=== PATIENT | female | born 1940 | race Caucasian/White ===

== ENCOUNTER → 2019-04-07 | Outpatient (CLI) | payer SELFPAY | PROVIDERS: Family Provider Nurse Practitioner Family; Visit Provider Internal Medicine Medical Oncology | DX: Z08 Encounter for follow-up examination after completed treatment for malignant neoplasm (principal); Z85.118 Personal history of other malignant neoplasm of bronchus and lung; L98.9 Disorder of the skin and subcutaneous tissue, unspecified; Z90.2 Acquired absence of lung [part of]; D64.9 Anemia, unspecified; J44.9 Chronic obstructive pulmonary disease, unspecified; I10 Essential (primary) hypertension; K58.9 Irritable bowel syndrome, unspecified; M19.90 Unspecified osteoarthritis, unspecified site; H35.30 Unspecified macular degeneration; F41.8 Other specified anxiety disorders | CPT/HCPCS: 36415; 80053; 82607; 82728; 83540; 83550; 84443; 85025; 99213 ==

== ENCOUNTER 2019-09-22 09:41 | Outpatient (CLI) | payer MEDICARE, OTHER, SELFPAY ==
--- NOTE | 2019-09-22 09:44 | CT_ITS ---
WS: [id number] CT CHEST TECHNIQUE: Contrast enhanced CT of the chest with coronal and sagittal reformatted images. CLINICAL INFORMATION: LUNG CANCER COMPARISON: October 16, 2018, May 19, 2018, September 13, 2017, March 12, 2017. PET/CT September 21, 2017 DLP: 279.[address] scans at [facility] use at least one of these dose optimization techniques: automat ed exposure control; mA and/or kV adjustment per patient size (includes targeted exams where dose is matched to clinical indication); or iterative reconstruction. FINDINGS:Advanced chronic emphysematous change. Postoperative changes partial left lower lobe lobecto my. Stable parenchymal scarring and subsegmental atelectasis left lower lobe with volume loss. Right lung is well aerated. No suspicious parenchymal abnormalities in the right lung. No mediastinal or hilar lymphadenopathy. Vascular calcification including coronary. Normal thyroid gland. No axilla ry lymphadenopathy. Tiny left pleural effusion/pleural thickening. Stable hepatic cysts or cavernoma right hepatic lobe.Cholecystectomy. Left renal cyst measuring 2.7 c m. Tiny cyst at the dome the liver. Normal caliber thoracic aorta. Moderate aortic calcification. Small pericardial effusion. Slight retr olisthesis L1 on L2. Moderate thoracic kyphosis. CT/CT chest w con* [id number] IMPRESSION: 1. Stable postoperative changes left lower lobe lobectomy. Stable parenchymal scarring and subsegmental atelectasis in the left lower lobe. No recurrent mass or lesion. 2. Right lung is well aerated. 3. Advanced chronic emphysematous changes. 4. No mediastinal or hilar lymphadenopathy.
[2019-09-22 10:09] LABS: Basophils # 0.1 10^3/uL (0.0-0.1); Basophils % 0.8 %; Eosinophils # 0.1 10^3/uL (0.0-0.8); Eosinophils % 1.1 %; Hematocrit 36.5 % (37.0-47.0); Hemoglobin 12.1 g/dL (11.5-15.3); Lymphocytes # 1.6 10^3/uL (0.8-4.8); Lymphocytes % 25.9 %; Mean Corpuscular HGB Conc 33.2 g/dL (30.0-36.0); Mean Corpuscular Hemoglobin 31.7 pg (28.0-34.0); Mean Corpuscular Volume 95.5 fL (81-99); Mean Platelet Volume 9.9 fL (7.4-10.4); Monocytes # 0.5 10^3/uL (0.2-0.9); Monocytes % 8.6 %; Neutrophils # 3.9 10^3/uL (1.8-7.7); Neutrophils % 63.3 %; Nucleated Red Blood Cells % 0 %; Platelet Count 191 10^3/cmm (130-400); Red Blood Count 3.82 10^6/uL (4.1-5.3); Red Cell Distribution Width 12.3 % (12.1-15.1); White Blood Count 6.2 10^3/uL (4.0-10.0)
[2019-09-22 10:22] LABS: Alanine Aminotransferase 7 U/L (0-33); Albumin Level 4.5 g/dL (3.5-5.2); Alkaline Phosphatase 59 IU/L (35-105); Anion Gap 14.3 (5-19); Aspartate Amino Transferase 15 U/L (0-32); Blood Urea Nitrogen 10 mg/dL (8-23); Carbon Dioxide 30 mmol/L (22-29); Chloride 96 mmol/L (98-107); Globulin 1.7 g/dL (1.3-4.6); Glucose 100 mg/dL (65-115); Osmolality Calculated 278 mOsm/kg (285-295); Potassium 4.3 mmol/L (3.5-5.1); Sodium 136 mmol/L (136-145); Total Bilirubin 0.3 mg/dL (0.15-1.2); Total Protein 6.2 g/dL (6.6-8.7)
[2019-09-22] MEDS: iohexol 300 mg/mL 100 mL Btl IV (11:02)
== END 2019-09-22 09:42 | disposition home or self-care (01) ==
LOC: CT 09:41
PROVIDERS: Family Provider Nurse Practitioner Family; PCP Nurse Practitioner Family; Visit Provider Internal Medicine Medical Oncology
DX: C34.32 Malignant neoplasm of lower lobe, left bronchus or lung (principal); Z90.2 Acquired absence of lung [part of]; I70.0 Atherosclerosis of aorta; I31.3 Pericardial effusion (noninflammatory)
CPT/HCPCS: 36415; 71260; 80053; 85025

== ENCOUNTER 2019-09-24 13:22 | Outpatient (CLI) | payer MEDICARE, OTHER, SELFPAY ==
--- NOTE | 2019-09-24 19:59 | ONC FU_ITS ---
Dr. Loya Patient Follow-Up Note Patient: Doris Zelaya Unit #: [id number]: 1940 Dicatated By: Nahum Loya M.D.Date of Visit:Sep 24, 2019 Onc Med Follow-up/Prog Note Chief Complaint: Lung cancer. 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 This patient has severe COPD. She was noted to have a small left lower lobe pulmonary nodule on a chest CT scan in December 2016. It measured 7.3 mm. Also noted was a right apical subpleural nodule measuring 5.3 mm. It appeared stable on a followup study in March 2017. However, a repeat chest CT on 09/13/2017 the left lower lobe nodule had increased to 10.4 mm. The right apical subpleural nodule appeared stable at 5 mm. Other findings included severe emphysema and increasing pericardial effusion measuring 1.6 cm. PET/CT showed uptake in the left lower lobe nodule consistent with primary lung malignancy. There were reportedly no other areas of abnormal uptake. She was referred to Dr. Lock in [place]. On 11/22/2017 she underwent left video-assisted thorascopic surgery with left lower lobe segmentectomy which included the lateral and posterior lateral basal segments. Pathology showed moderately differentiated non-small cell carcinoma, which ultimately was determined to be a squamous cell carcinoma. It measured 1.2 cm in greatest dimension. The margins were uninvolved, with the closest margin measured 1.5 cm. The tumor was found to be negative for PD-L1 expression, 0%. She had medical oncology consultation with Dr. Justo Ford on 11/26/2017. No further treatment was recommended other than close surveillance. She appeared clinically stable on a follow-up visit with him in February 2018. I had seen her initially on 05/07/2018. A repeat chest CT on 05/19/2018 showed interval resection of left lower lobe pulmonary nodule with residual left lower lobe and inferior lingular atelectasis. A new small left pleural effusion was ultimately most likely postsurgical change. There was no evidence of local disease progression or metastatic disease. There was evidence of chronic emphysema and there was unchanged moderate pericardial effusion. She has severe COPD. Her other medical illnesses include hypertension, IBS, degenerative arthritis, and chronic anxiety/depression. 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 She has a skin condition which she believes is psoriasis, and she also has a history of skin cancer excision. She has a history of smoking 1 pack of cigarettes daily for 50 years. She cut down to 2 cigarettes per day following her lung surgery. INTERIM HISTORY: Her chest CT on 10/16/2018 showed severe calcified coronary artery disease. There was mild to moderate pericardial fluid and/or thickening. Lungs were hyper aerated consistent with moderate COPD. There was continued scarring and/or atelectasis in the left lung base. There was mild left pleural fluid collection. There was no evidence for recurrent/metastatic disease. She continued on observation/expectant management for the lung cancer. Surveillance chest CT on 09/22/2019 showed stable changes of left lower lobectomy. Parenchymal scarring and subsegmental atelectasis in the left lower lobe also appeared stable. There was no mediastinal or hilar lymphadenopathy. Overall there was no evidence for recurrent or metastatic disease. She is seen for a scheduled visit. She continues to complain that she has no energy. Lately she has been having some difficulty controlling her blood pressure, which was tending to get high in the early afternoon but then dropping low during the night. Dr. Dash has made some adjustments in her medication, that seems to be getting better. She still has very limited activity. ECOG score is 2. She complains that she has no appetite. Her weight is down a couple of pounds. She has not had fever. She tends to have chills and sweating after she first wakes up in the morning. She has had sore throat, and she also complains that she has had wheezing in her throat on the left side. She says her breathing has been okay with oxygen. She does have chronic cough. She has been having a tingling feeling in the left side of her chest at least 2 or 3 times a week. She recently had some nausea with one episode of vomiting, and for the past 2 days she has had diarrhea. She otherwise has constipation. She has urinary frequency and nocturia. She has been having pain in her right elbow and left wrist. She also complains of having pain in the back of her neck, and she has lower back pain with activity. It is relieved with lying down. She does not complain of headache. She occasionally has numbness in her fingers. Medications: AmLODIPine Besylate 1 Tablet (of 2.5 mg) Oral daily, Aspirin 1 Tablet (of 81 mg) Oral daily, B-12 1 Tablet (of 5000 mcg) Oral daily, Bisacodyl 1 Tablet (of 5 mg) Tablet, enteric coated Oral PRN, Carvedilol 1 Tablet (of 6.25 mg) Oral b.i.d., clonazePAM 0.25 Tablet (of 1 mg) Oral at bedtime PRN, Coenzyme Q10 1 Tablet Oral daily, [employer] Vitamin A 1 Capsule (of 07081 Units) Oral daily, Folic Acid 1 Tablet Oral daily, Ipratropium [place] 1 puff(s) (of 0.02 %) Solution Inhalation b.i.d. PRN, Melatonin 1 Tablet (of 5 mg) Oral at bedtime, PreserVision AREDS 1 Capsule Oral b.i.d., Probiotic 1 Capsule Oral daily, Stool Softener 1 Tablet (of 100 mg) Oral PRN, Turmeric 1 Capsule (of 500 mg) Oral daily, Vitamin D3 1 Tablet (of 1000 Units) Oral daily PRN Allergies: Cipro, Dexamethasone, PredniSONE, and Sulfa Antibiotics. Review of Systems: Constitutional - She has no energy. She has limited activity. She has a home health aid as well as PT/OT. Her appetite is very poor. Her weight is down a few pounds. No fevers. She has been waking up in the mornings with chills and sweating. No hot flashes. ECOG score is 2, ENMT - No sinus congestion/drainage. No mouth sores. She has a sore throat. No difficulty swallowing, Hematologic/Lymphatic - She bruises easily, Respiratory - She has shortness of breath. She wears continous oxygen. She has a productive cough. No pleuritic pain or hemoptysis. She is having some wheezing in her upper airway, mainly in the mornings, Cardiovascular - No angina pain. No palpitations. She is having a tingling sensation in her chest, this is occuring 1-2 times a week, Gastrointestinal - She had some nausea with one episode of vomiting yesterday. No heartburn or acid reflux. She has had diarrhea the last few days. She is otherwise having constipation. No blood in the stool or black stools, Genitourinary (F) - No dysuria or hematuria. She has urinary frequency and nocturia. No urgency or incontinence, Musculoskeletal - She has been having pain in her right elbow and her left wrist. She has pain in the back of her neck and she also has lower back pain with activity. It is relieved by lying down, Integumentary - No skin complications, Neurologic - No headache or dizziness. She occasionally has numbness in her fingers. No other focal neurologic symptoms, Psychiatric - No anxiety or depression. She does not sleep well. Vital Signs: Performed on Sep 24, 2019 14:05 Height - 62.00 in Weight - 97.00 lbs (LOW) BSA - 1.41 sq.m BMI - 17.74 (LOW) Temperature - 98.1 F (LOW) Pulse - 65 /min Respiration - 16 /min BP - 145/77 mm(hg) (HIGH) O2 Sat - 98 % Pain - 5 Physical Examination: Constitutional - She appears generally weak and frail, Eyes - Sclerae nonicteric. Conjunctivae clear, ENMT - No lesions noted in the oral cavity, Hematologic/Lymphatic - There are very small, firm nodules in the posterior cervical area bilaterally. There is otherwise no cervical, clavicular, or axillary adenopathy noted, Respiratory - Lungs show diminished air movement bilaterally. Breath sounds are slightly coarse, and there are mild expiratory rhonchi, Cardiovascular - Heart rhythm is regular. There is no murmur, gallop, or rub noted, Abdomen - Thin. Liver and spleen are not enlarged. There is no abdominal mass or ascites noted and there is no inguinal adenopathy, Extremities - No edema. There are small superficial varicosities on the lower legs and feet, Neurologic - No focal neurologic deficits noted. Lab/Imaging: CBC shows hemoglobin 12.1 g, white blood cell count 6200, and platelet count 191,000. Comprehensive metabolic profile is unremarkable. Impression: 1. 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 2. She underwent complete resection with left video-assisted thorascopic surgery with left lower lobe segmentectomy on 11/22/2017. 3. She has severe underlying COPD. Her other medical illnesses include: 4. Hypertension. 5. Irritable bowel syndrome. 6. Degenerative arthritis. 7. Macular degeneration of the right eye. 8. History of thyroid nodules. 9. Psoriasis. 10. Anxiety/depression. During followup she has continued to have very marginal performance status, but thus far there has been no evidence of recurrence of the lung cancer. Plan: She remains on observation/expectant management for the lung cancer. I will see her again in 6 months, but as long she is stable clinically I will just plan for a CT scan again in 1 year. Signed By: Nahum Loya M.D. <<Signature on File>>
== END 2019-09-24 13:23 | disposition home or self-care (01) ==
LOC: ONCMED 13:28
PROVIDERS: PCP Nurse Practitioner Family; Visit Provider Internal Medicine Medical Oncology
DX: Z08 Encounter for follow-up examination after completed treatment for malignant neoplasm (principal); Z85.118 Personal history of other malignant neoplasm of bronchus and lung; Z90.2 Acquired absence of lung [part of]; J44.9 Chronic obstructive pulmonary disease, unspecified; I10 Essential (primary) hypertension; K58.9 Irritable bowel syndrome, unspecified; M19.90 Unspecified osteoarthritis, unspecified site; H35.30 Unspecified macular degeneration; F41.8 Other specified anxiety disorders; L40.9 Psoriasis, unspecified
CPT/HCPCS: G0463

== ENCOUNTER 2019-10-20 10:18 | Emergency (ER) | payer MEDICARE, OTHER, SELFPAY ==
[2019-10-20 11:06] VITALS: BP 120/59; PULSE 65; RESP 18; TEMP 37; O2SAT 94; BMI 17.9
--- NOTE | 2019-10-20 11:36 | XRR_ITS ---
PROCEDURE INFORMATION: Exam: XR Chest, 1 View Exam date and time: 10/20/2019 11:52 AM Age: 79 years old Clinical indication: Other: Hypotension; Prior surgery; Patient HX: Lung CA HX; Additional info: Hypotension, h/o pericardial effusion TECHNIQUE: Imaging protocol: XR of the chest Views: 1 view. COMPARISON: CR Chest 1 [place] [id number] 07/05/2017 3:39 PM FINDINGS: Lungs: No pneumonia or pulmonary edema. Pleural space: Trace left pleural effusion. No pneumothorax. Heart/Mediastinum: The cardiac silhouette is not enlarged. The mediastinal contours are normal. Vasculature: The thoracic aorta is atherosclerotic. Bones/joints: No acute osseous abnormality. XR/XR chest 1V portable [id number] IMPRESSION: Trace left pleural effusion.
--- NOTE | 2019-10-20 11:37 | ECG_ITS ---
[facility] Test Date: 2019-10-20 Pat Name: Doris Zelaya Department: Room: Gender: Female Consumer Marketing Specialist: : 1940 Requested By: Kimber Martin Order Number: [id number] Myah MD: Joe Colorado M.D. Measurements Intervals [place] Rate: 57 P: 71 ME: 140 QRS: 15 QRSD: 81 T: 83 QT: 397 QTc: 388 Interpretive Statements SINUS BRADYCARDIA Compared to ECG 02/09/2017 06:48:37 Sinus rhythm no longer present Electronically Signed On 10-20-2019 19:17:20 CDT by Joe Colorado M.D. [email or web address]
[2019-10-20 11:43] VITALS: BP 132/54; PULSE 63; RESP 15; O2SAT 100
[2019-10-20 12:07] LABS: Basophils # 0.1 10^3/uL (0.0-0.1); Basophils % 0.8 %; Eosinophils # 0.1 10^3/uL (0.0-0.8); Hematocrit 36.4 % (37.0-47.0); Lymphocytes # 1.7 10^3/uL (0.8-4.8); Lymphocytes % 28.3 %; Mean Corpuscular Volume 94.1 fL (81-99); Mean Platelet Volume 9.6 fL (7.4-10.4); Monocytes # 0.5 10^3/uL (0.2-0.9); Monocytes % 7.4 %; Neutrophils # 3.75 10^3/uL (1.8-7.7); Neutrophils % 61.2 %; Nucleated Red Blood Cells % 0 %; Platelet Count 169 10^3/cmm (130-400); Red Blood Count 3.87 10^6/uL (4.1-5.3); Red Cell Distribution Width 12.5 % (12.1-15.1); White Blood Count 6.1 10^3/uL (4.0-10.0)
[2019-10-20] MEDS: sodium chloride 0.9% 500 ML 999 ML IV (12:08)
[2019-10-20 12:19] VITALS: BP 130/72; PULSE 71; RESP 23; O2SAT 100
[2019-10-20 12:30] LABS: Lactate (Lactic Acid level) 0.6 mmol/L (0.5-2.2)
[2019-10-20 12:32] LABS: Troponin(5th) Baseline 14 ng/L (0-10)
[2019-10-20 12:41] LABS: Add Urine Microscopic? NO
[2019-10-20 12:44] LABS: Bilirubin Urine Neg (NEGATIVE); Blood Urine Neg (Negative); Glucose Urine UA Norm (Normal); Ketones Urine Negative (Negative); Leukocyte Esterase Urine Negative (Negative); Nitrate Urine Negative (Negative); Protein Urine Neg (Negative); Specific Gravity, Urine 1.015 (1.005-1.030); Urine Appearance Clear (CLEAR); Urine Color Yellow (Yellow); Urobilinogen Urine Neg (Negative); pH Urine 5 (5-7)
[2019-10-20 12:48] LABS: Alanine Aminotransferase 11 U/L (0-33); Albumin Level 4.5 g/dL (3.5-5.2); Alkaline Phosphatase 60 IU/L (35-105); Aspartate Amino Transferase 13 U/L (0-32); Blood Urea Nitrogen 10 mg/dL (8-23); Calcium 9.9 mg/dL (8.5-10.5); Carbon Dioxide 32 mmol/L (22-29); Chloride 99 mmol/L (98-107); Globulin 1.8 g/dL (1.3-4.6); Glucose 94 mg/dL (65-115); Magnesium 2.2 mg/dL (1.7-2.3); NT Pro B Type Natriuretic Pept 446 pg/mL (0-450); Osmolality Calculated 280 mOsm/kg (285-295); Sodium 137 mmol/L (136-145); Total Bilirubin 0.4 mg/dL (0.15-1.2); Total Protein 6.3 g/dL (6.6-8.7)
--- NOTE | 2019-10-20 12:52 | W.ED.GENADLT ---
HPI - General Adult General: Chief complaint: General Medical Stated complaint: hypotension Time Seen by Provider: 10/20/19 10:36 History of Present Illness: HPI narrative: This patient is an 79-year-old female presenting today with low blood pressures. She showed me a record of her blood pressures over the past couple of weeks. She checks her blood pressure many times a day. She has noted low blood pressures in the 70s systolic up to about 145 systolic. The low blood pressures tend to be in the mornings but she also has them recorded throughout the day. She is worried also about her heart rate but that seems to be in the 70s most of the time. She feels very weak and tired. She has not discussed this with any of her physicians. She was seeing Dr. Dash for cardiology but says that every time she calls she just gets to talk to the nurse. She also has a primary care provider in [facility] who she has not been able to see due to vacation. She has a history of lung cancer with resection. She also has a history of COPD and continues to smoke a small amount. She takes carvedilol twice a day. She also takes amlodipine if her blood pressure is over 140 systolic. Additionally she complains of neck pain. She describes this both lateral aspects of her neck. More so on the right. She feels some lymph nodes in both anterior chains. She is concerned about lumps that she feels under her jaw as well. She is not having any difficulty swallowing. No fevers. She is quite thin but denies weight loss. She also brought with her a CT scan that was done in the middle of September. She is concerned about the finding on there mentioning a small pericardial effusion. Onset (ago): week(s) (2, or more) Radiation: neck Severity: moderate Quality: aching Relieving factors: none Exacerbating factors: none Associated symptoms: Reports malaise; Deny chest pain, dyspnea, headache(s), nausea, rash or vomiting Review of Systems General: Reports: 10 or more systems reviewed and unremarkable except in HPI and below Const: Reports: fatigue and malaise; Denies: fever(s) or chills Eyes: Denies: change in vision ENMT: Denies: throat pain or odynophagia Card: Denies: chest pain or swelling of feet/ankles Resp: Denies: dyspnea, productive cough or non-productive cough GI: Denies: abdominal pain, nausea or vomiting : Denies: flank pain or difficulty voiding Musc: Denies: neck pain or back pain Skin/Breast: Denies: rash Neuro: Denies: headache(s), numbness in extremities or weakness in extremities Vipin/Lymph: Denies: easy bruising or easy bleeding PFSH ED PFSH: Medical History (Updated 10/20/19 @ 16:00 by Kimber Logan MD) Asymptomatic carotid artery stenosis COPD (chronic obstructive pulmonary disease) Elevated systolic blood pressure reading with diagnosis of hypertension History of TIA (transient ischemic attack) Indeterminate pulmonary nodules Lung cancer Family History Mother No problems noted. Other Liver malignancy Social History (Updated 10/20/19 @ 11:11 by Santo Briggs RN) Smoking and tobacco status: light tobacco smoker Alcohol intake: never Marital status: / Physical Exam Const: COMMON NORMALS: no acute distress, patient oriented x3, no limitations and alert GENERAL APPEARANCE: cooperative and comfortable NUTRITIONAL APPEARANCE: underweight ORIENTATION/CONSCIOUSNESS: Yes awake HENMT: HEAD & SCALP: normal to inspection FACE & SINUS: normal facial exam Eye: GENERAL EYE: appearance normal, both eyes and all related structures Neck/C-Spine: COMMON NORMALS: supple, no meningeal signs and no JVD Chest: COMMONS NORMALS: normal inspection of the chest Resp: COMMON NORMALS: normal respiratory effort, No use of accessory muscles and clear to auscultation bilaterally AUSCULTATION: clear to auscultation bilaterally Cardio: COMMON NORMALS: no JVD, regular rate, regular rhythm and No murmurs present (Cardio) RATE: regular rate RHYTHM: regular rhythm GI: COMMON NORMALS: Normal to inspection, nondistended, normoactive bowel sounds present, Soft to palpation and non-tender INSPECTION: Yes normal to inspection AUSCULTATION: Yes normoactive bowel sounds PALPATION: Yes Soft to palpation Back/Pelvis: COMMON NORMALS: thoracic and lumbar spine normal to inspection Extremity: COMMON NORMALS: normal to inspection Neuro: COMMON NORMALS: patient oriented x3, moves all extremities, no focal motor deficits and no sensory deficits noted SENSORIUM/ORIENTATION: Yes alert MENINGEAL SIGNS: Yes no meningeal signs Psych: COMMON NORMALS: mental status grossly normal, cooperative and normal affect Skin: COMMON NORMALS: no rashes or lesions noted and turgor normal GENERAL SKIN EXAM: no rashes or lesions noted and turgor normal Course ED course: This patient was very concerned about her low blood pressures but for some reason felt like she needed to be on more blood pressure medicine. We had a long discussion about that and I tried to reassure her that I would much rather see her blood pressure a little bit on the high side then too low. We discussed that low blood pressures and taking too much blood pressure medicine can cause passing out an injury. We discussed exactly how she should be taking her blood pressure medicine and I am a little concerned that she is not going to be compliant. She is a patient of Dr. Dash and is very concerned about who she is going to see now that he is retiring. Case management is helping her to make an cardiology appointment. Patient also told me that she wanted help getting a primary care doctor and that was set up for her to see Dr. Rodriguez. The patient then said that she plan to see Dr. Waldrop in [place]. I have asked her to please cancel the appoint with Dr. Rodriguez if she is able to get in and see Dr. Waldrop before that. Otherwise have asked her to keep the appointment with Dr. Rodriguez so she can have some follow-up and further evaluation of her blood pressure issues. Vital Signs: Vital signs: Vital Signs Temperature 98.6 F 10/20/19 11:06 Pulse Rate 66 10/20/19 16:15 Respiratory Rate 15 10/20/19 16:15 Blood Pressure 154/66 10/20/19 16:15 Pulse Oximetry 98 10/20/19 16:15 [facility] - General Adult Lab Data: Labs: Lab Results 10/20/19 10/20/19 10/20/19 Range/Units 12:02 12:02 12:02 WBC 6.1 (4.0-10.0) 10^3/ uL RBC 3.87 L (4.1-5.3) 10^6/u L Hgb 12.0 (11.5-15.3) g/dL Hct 36.4 L (37.0-47.0) % MCV 94.1 (81-99) fL MCH 31.0 (28.0-34.0) pg MCHC 33.0 (30.0-36.0) g/dL RDW 12.5 (12.1-15.1) % Plt Count 169 (130-400) 10^3/c mm MPV 9.6 (7.4-10.4) fL Neut % (Auto) 61.2 % Lymph % (Auto) 28.3 % Cedar % (Auto) 7.4 % Eos % (Auto) 2.0 % Baso % (Auto) 0.8 % Neut # (Auto) 3.75 (1.8-7.7) 10^3/u L Lymph # (Auto) 1.7 (0.8-4.8) 10^3/u L Cedar # (Auto) 0.5 (0.2-0.9) 10^3/u L Eos # (Auto) 0.1 (0.0-0.8) 10^3/u L Baso # (Auto) 0.1 (0.0-0.1) 10^3/u L Nucleated RBC % (a uto) 0 % Nucleated RBCs # 0.0 /100WBC Sodium 137 (136-145) mmol/L Potassium 4.0 (3.5-5.1) mmol/L Chloride 99 (98-107) mmol/L Carbon Dioxide 32 H (22-29) mmol/L Anion Gap 10.0 (5-19) BUN 10 (8-23) mg/dL Creatinine 0.7 (0.5-0.9) mg/dL Glucose 94 (65-115) mg/dL Calculated Osmolal ity 280 L (285-295) mOsm/k g Lactate 0.6 (0.5-2.2) mmol/L Calcium 9.9 (8.5-10.5) mg/dL Magnesium 2.2 (1.7-2.3) mg/dL Total Bilirubin 0.4 (0.15-1.2) mg/dL AST 13 (0-32) U/L ALT 11 (0-33) U/L Alkaline Phosphata se 60 (35-105) IU/L Troponin T Baselin e (0-10) ng/L Troponin T 120 Min wilton (0-10) ng/L Delta Troponin T (0-10) ABS# NT-Pro-B Natriuret Pep 446 (0-450) pg/mL Total Protein 6.3 L (6.6-8.7) g/dL Albumin 4.5 (3.5-5.2) g/dL Globulin 1.8 (1.3-4.6) g/dL Urine Color (Yellow) Urine Appearance (CLEAR) Urine pH (5-7) Ur Specific Gravit y (1.005-1.030) Urine Protein (Negative) Urine Glucose (UA) (Normal) Urine Ketones (Negative) Urine Blood (Negative) Urine Nitrate (Negative) Urine Bilirubin (NEGATIVE) Urine Urobilinogen (Negative) mg/dL Ur Leukocyte Lilo ase (Negative) 10/20/19 10/20/19 10/20/19 Range/Units 12:02 12:27 14:06 WBC (4.0-10.0) 10^3/ uL RBC (4.1-5.3) 10^6/u L Hgb (11.5-15.3) g/dL Hct (37.0-47.0) % MCV (81-99) fL MCH (28.0-34.0) pg MCHC (30.0-36.0) g/dL RDW (12.1-15.1) % Plt Count (130-400) 10^3/c mm MPV (7.4-10.4) fL Neut % (Auto) % Lymph % (Auto) % Cedar % (Auto) % Eos % (Auto) % Baso % (Auto) % Neut # (Auto) (1.8-7.7) 10^3/u L Lymph # (Auto) (0.8-4.8) 10^3/u L Cedar # (Auto) (0.2-0.9) 10^3/u L Eos # (Auto) (0.0-0.8) 10^3/u L Baso # (Auto) (0.0-0.1) 10^3/u L Nucleated RBC % (a uto) % Nucleated RBCs # /100WBC Sodium (136-145) mmol/L Potassium (3.5-5.1) mmol/L Chloride (98-107) mmol/L Carbon Dioxide (22-29) mmol/L Anion Gap (5-19) BUN (8-23) mg/dL Creatinine (0.5-0.9) mg/dL Glucose (65-115) mg/dL Calculated Osmolal ity (285-295) mOsm/k g Lactate (0.5-2.2) mmol/L Calcium (8.5-10.5) mg/dL Magnesium (1.7-2.3) mg/dL Total Bilirubin (0.15-1.2) mg/dL AST (0-32) U/L ALT (0-33) U/L Alkaline Phosphata se (35-105) IU/L Troponin T Baselin e 14 H (0-10) ng/L Troponin T 120 Min wilton 13.58 H (0-10) ng/L Delta Troponin T -0.42 L (0-10) ABS# NT-Pro-B Natriuret Pep (0-450) pg/mL Total Protein (6.6-8.7) g/dL Albumin (3.5-5.2) g/dL Globulin (1.3-4.6) g/dL Urine Color Yellow (Yellow) Urine Appearance Clear (CLEAR) Urine pH 5 (5-7) Ur Specific Gravit y 1.015 (1.005-1.030) Urine Protein Neg (Negative) Urine Glucose (UA) Norm (Normal) Urine Ketones Negative (Negative) Urine Blood Neg (Negative) Urine Nitrate Negative (Negative) Urine Bilirubin Neg (NEGATIVE) Urine Urobilinogen Neg (Negative) mg/dL Ur Leukocyte Lilo ase Negative (Negative) Discharge Plan Discharge Patient Disposition: Home, Self-Care Clinical Impression: Hypotension due to medication Condition: Stable Prescriptions: New carvedilol 3.125 mg tablet 3.125 mg PO BID Qty: 60 RF: 0 Discontinued carvedilol 6.25 mg tablet 6.25 mg PO BID RF: 0 amlodipine 2.5 mg tablet 2.5 mg PO BID RF: 0 No Action ipratropium bromide 0.02 % solution See Rx Instructions .ROUTE .COMPLEX RF: 0 aspirin [Adult Aspirin Regimen] 81 mg tablet,delayed release (DR/EC) 81 mg PO DAILY RF: 0 bisacodyl [Dulcolax (bisacodyl)] 5 mg tablet,delayed release (DR/EC) See Rx Instructions .ROUTE .COMPLEX RF: 0 clonazepam 1 mg tablet See Rx Instructions .ROUTE .COMPLEX RF: 0 vitamin A-vit C-vit E-zinc-Cu Tablet 2 tab PO DAILY RF: 0 turmeric 1 tab PO DAILY RF: 0 mecobalamin (vitamin B12) 1,000 mcg tablet,disintegrating 1,000 mcg PO DAILY RF: 0 cholecalciferol (vitamin D3) 2,000 unit tablet 2,000 unit PO DAILY RF: 0 coenzyme Q10 [Co Q-10] 200 mg capsule 200 mg PO DAILY RF: 0 Lactobacillus acidophilus 1 cap PO DAILY RF: 0 omega-3 fatty acids [Fish Oil Concentrate] 1,000 mg capsule 1,000 mg PO DAILY RF: 0 levalbuterol HCl 0.63 mg/3 mL solution for nebulization 0.63 mg INHALATION TID RF: 0 doxycycline hyclate 100 mg tablet 100 mg PO BID RF: 0 Discharge Orders: Discharge Order (Routine); Ordered 10/20/19 Ordered By: Kimber Logan Referrals: Dona Coronel NP [Primary Care Provider] - Amy Rodriguez DO [Physician] - 2 weeks Discharge Diet: Usual diet Discharge Activity: Resume usual activity Patient Instructions: Hypotension (ED) Activity Restrictions/Additional Instructions: Stop taking the carvedilol 6.25 mg tablets that you are currently prescribed. Instead take the carvedilol 3.125 mg tablets that were prescribed today. Do not take the amlodipine unless your blood pressure is over 150 on the top number for more than 4 hours in a row. Follow-up with the cardiology office. They will call you to set up an appointment. You have an appointment made with Dr. Rodriguez on November 05. She is a primary care provider. If you do not need that appointment because you have established with Dr. Waldrop, please cancel the appointment with Dr. Rodriguez. Return to the emergency department for any new or worse symptoms. Discharge Date/Time: 10/20/19 16:18 Coding Level of Care Code ED Advanced Practice Nurse for Cecelia Iraheta
[2019-10-20 13:30] VITALS: PULSE 69; RESP 20
--- NOTE | 2019-10-20 13:37 | ECG_ITS ---
[facility] Test Date: 2019-10-20 Pat Name: Doris Zelaya Department: Room: Gender: Female Reheater: : 1940 Requested By: Kimber Martin Order Number: [id number] Myah MD: Joe Colorado M.D. Measurements Intervals [place] Rate: 59 P: 99 NE: 168 QRS: -15 QRSD: 77 T: 71 QT: 397 QTc: 396 Interpretive Statements SINUS BRADYCARDIA Compared to ECG 10/20/2019 12:51:09 No significant changes Electronically Signed On 10-20-2019 19:19:47 CDT by Joe Colorado M.D. [email or web address]
[2019-10-20 13:39] VITALS: BP 159/56; PULSE 69; RESP 15; O2SAT 100
[2019-10-20 14:30] LABS: Troponin 5 2HR 13.58 ng/L (0-10)
[2019-10-20 14:41] LABS: Troponin 5 2HR Delta -0.42 ABS# (0-10)
--- NOTE | 2019-10-20 15:51 | DCPLANNER ---
manager shell was asked to get patient established with a primary care physician, pay station department manager called the office of , spoke with Tatiana, a follow up appointment is scheduled for Wednesday, November 06, 2019 at 1:[address] Rodriguez. manager shell informed patient and ED physician of the scheduled appointment. manager shell was also asked to schedule a follow up appointment for patient with heart care. manager shell called the [facility], spoke with Melissa, gave clinic patients information. manager shell was told that patients information would be printed and reviewed. Clinic will call patient with appointment information.
[2019-10-20 16:15] VITALS: BP 154/66; PULSE 66; RESP 15; O2SAT 98
--- NOTE | 2019-10-21 13:42 | DCPLANNER ---
Patient has a follow up appointment scheduled for Saturday, November 25, 2019 at 1:[address] Dash at [facility]. Patient will call patient with appointment information.
--- NOTE | 2020-01-01 14:58 | DCPLANNER ---
Patient had a follow up appointment scheduled for 11.06.[address] Rodriguez - appointment cancelled Patient had a follow up appointment scheduled with [facility] - patient did attend appointment.
== END 2019-10-20 16:18 | disposition home or self-care (01) ==
PROVIDERS: Emergency Provider Emergency Medicine; PCP Nurse Practitioner Family
DX: I95.2 Hypotension due to drugs (principal); Z79.82 Long term (current) use of aspirin; J44.9 Chronic obstructive pulmonary disease, unspecified; Z86.73 Personal history of transient ischemic attack (TIA), and cerebral infarction without residual deficits; F17.210 Nicotine dependence, cigarettes, uncomplicated
CPT/HCPCS: 12345; 36415; 71045; 80053; 81003; 83605; 83735; 83880; 84484; 85025; 93005; 99283; 99284; J7040

== ENCOUNTER 2019-12-07 14:17 | Outpatient (CLI) | payer MEDICARE, OTHER, SELFPAY ==
--- NOTE | 2019-12-07 15:00 | USCV_ITS ---
Doris Zelaya Age: 79 Gender: F : 1940 Exam Date: 12/07/2019 14:50 Ordering Phys: Marlee Vicente Technologist: Yina Sumner Exam Location: [facility] [place] Indication: Mild carotid artery stenosis Risk Factors: None Previous Vascular Surgery: None Right Brachial BP: / Left Brachial BP: / Right Left Velocity (cm/s) Spectral Plaque Velocity (cm/s) Spectral Plaque Syst/Diast Broadening Syst/Diast Broadening 91.50/ 13.20 Prox CCA 67.90 / 12.90 77.70/ 17.10 Mid CCA 63.90 / 12.10 77.70/ 18.60 Distal CCA 53.90 / 10.60 71.30/ 16.40 Prox ICA 43.40 / 10.50 70.30/ 21.80 Mid ICA 112.10/ 33.90 97.80/ 26.70 Distal ICA 85.70 / 18.00 87.70 ECA 76.00 1.26 ICA/CCA 1.76 Antegrade Vertebral Antegrade 47.70/ 11.30 cm/s 93.15/ 19.25 cm/s Tri Subclavian Tri 59.00 86.60 FINDINGS Comparison:. 07/29/17. Mild elevation of systolic or diastolic velocities. Diffuse bilateral scattered calcified plaque and intimal thickening throughout the common carotid arteries and extending through the bifurcation. CONCLUSIONS Bilateral ICA stenosis less than 50%. Bilateral carotid atherosclerosis, no significant progresssio of disease. Dr. Jennifer Adan DO (Electronically Signed) Final Date: 07 December 2019 16:23 S
== END 2019-12-07 14:18 | disposition home or self-care (01) ==
LOC: US 14:18
PROVIDERS: PCP Family Medicine; Visit Provider Nurse Practitioner Family
DX: I65.23 Occlusion and stenosis of bilateral carotid arteries (principal)
CPT/HCPCS: 93880

== ENCOUNTER 2020-03-18 10:21 | Outpatient (CLI) | payer MEDICARE, OTHER, SELFPAY ==
--- NOTE | 2020-03-18 | CT_ITS ---
WS: [id number] CT CHEST TECHNIQUE: Contrast enhanced CT of the chest with coronal and sagittal reformatted images. CLINICAL INFORMATION: CHEST WALL PAIN COMPARISON: CT chest September 22, 2019 DLP: 409.[address] scans at [facility] use at least one of these dose optimization techniques: automat ed exposure control; mA and/or kV adjustment per patient size (includes targeted exams where dose is matched to clinical indication); or iterative reconstruction. FINDINGS:Stable postoperative changes left lower lobe lobectomy. Stable subsegmental atelectasis and scarring left lower lobe medially. No evidence of recurrent mass or lesion. Small left pleural effusion.Normal caliber thoracic aorta. A ortic calcification. Proximal main pulmonary arteries are normal. Normal thyroid. No mediastinal or h ilar lymphadenopathy.Left anterior rib fractures with callus formation appear new since September 22, 2019 at the left fourth fifth sixth and seventh ribs anteriorly. Small pericardial effusion similar to pr evious. Moderate thoracic kyphosis. Disc space narrowing in the lower thoracic spine. Slight retrolisthesis L 1 on L2. Disc space narrowing T12-L1 and L1-2 with vacuum disc phenomenon. Left renal cyst measuring 2.5 CM. Cholecystectomy clips. Diffuse fatty infiltration of the liver. A f ew small hepatic cysts. Thyroid gland is normal. CT/CT chest w con* [id number] IMPRESSION: 1. Stable postoperative changes left lower lobe lobectomy. Stable subsegmental atelectasis and scarring left lower lobe medially. 2. No evidence of recurrent mass or lesion. 3. Left anterior rib fractures with callus formation appear new since September 22, 2019 at the left fourth fifth sixth and seventh ribs anteriorly. 4. Advanced chronic emphysematous changes. 5. No mediastinal or hilar lymphadenopathy. 6. Cholecystectomy. A few hepatic cysts. 7. Moderate thoracic kyphosis.
[2020-03-19] MEDS: iodixanol 320 mg/mL 100mL Btl IV (12:04)
== END 2020-03-18 10:22 | disposition home or self-care (01) ==
LOC: RADWPI 10:25
PROVIDERS: PCP Family Medicine; Visit Provider Family Medicine
DX: R07.89 Other chest pain (principal); M40.294 Other kyphosis, thoracic region; Z90.49 Acquired absence of other specified parts of digestive tract; K76.89 Other specified diseases of liver; S22.42XA Multiple fractures of ribs, left side, initial encounter for closed fracture; X58.XXXA Exposure to other specified factors, initial encounter
CPT/HCPCS: 71260; Q9967